=== PATIENT | female | born 1985 | race Caucasian/White ===

== ENCOUNTER 2016-09-29 12:05 | Emergency (ER) | payer BC, OTHER ==
[~2016-09-29] VITALS: Ht 154.9 cm; Wt 52.2 kg
[~2016-09-29 12:05] MED LIST: ALPH1CAP PO; ASCA500 PO; CHOL2000 PO; LEVO75TA PO; LORA-741 PO; MISCCAP80 PO; MULT-506 PO; PRMT10 PO
[2016-09-29 12:09] VITALS: TEMP 37.7; Ht 154.9 cm; Wt 52.2 kg
[2016-09-29] MEDS ORDERED: ONDANSETRON INJ 2 MG/ML 2 ML VIAL IV STA (12:16)
[2016-09-29] MEDS ORDERED: SODIUM CHLORIDE 0.9% 1000ML 1,000 ML IV STA (12:16)
[2016-09-29] MEDS ORDERED: KETOROLAC TROMETHAMINE 30 MG/ML VIAL IV STA (12:17)
[2016-09-29] MEDS ORDERED: POTA10TA30 PO (12:33)
[2016-09-29] MEDS ORDERED: CYM30 PO (12:34)
[2016-09-29 12:45] LABS: BASO ABS # 0.07 K/uL (0-0.2); COMPLETE YES; EOS % 1.2 %; HEMATOCRIT 39.3 % (37-47); IG% 0.3 %; LYMPH ABS # 0.52 K/uL (1.2-3.4); MEAN CELL VOLUME 84.2 fL (80-100); MEAN CORPUSCULAR HEMOGLOBIN 29.1 pg (25-34); MEAN CORPUSCULAR HGB CONC 34.6 g/dl (32-36); MEAN PLATELET VOLUME 11.1 fL (7.4-10.4); MONO % 15.6 %; NEUT % 65.9 %; PLATELET COUNT 139 K/uL (130-400); RED BLOOD COUNT 4.67 M/uL (4.2-5.4); WHITE BLOOD COUNT 3.47 K/uL (4.8-10.8)
[2016-09-29 13:01] LABS: ALT/SGPT 52 U/L (12-78); BLOOD UREA NITROGEN 11 mg/dl (7-18); BUN/CREATININE RATIO 13.3 (10-20); CALCIUM 8.7 mg/dl (8.5-10.1); CARBON DIOXIDE 27 mmol/L (21-32); CHLORIDE 108 mmol/L (98-107); CREATININE 0.81 mg/dl (0.60-1.20); GLUCOSE 80 mg/dl (70-99); POTASSIUM 3.8 mmol/L (3.5-5.1); SODIUM 143 mmol/L (136-145)
[2016-09-29 13:04] LABS: ALKALINE PHOSPHATASE 73 U/L (45-117); AST/SGOT 37 U/L (15-37)
--- NOTE | 2016-09-29 13:09 | EMERGENCY ROOM VISIT NOTE ---
History Report prepared by Sia: Radha Del Castillo Under the Supervision of: Dr. Paulino De Leon D.O. First contact with patient: 12:12 Chief Complaint: ILLNESS Stated Complaint: FEVER,RAPID HEARTBEAT, SOB, VOMITING, CONGESTION History of Present Illness The patient is a 31 year old female who presents to the Emergency Room with complaints of a persistent illness that began Sunday. She currently rates her discomfort as a 4/10 in severity. The patient states that she has a history of POTS and Dysautonomia and states that she is often more susceptible to becoming dehydrated. She states that Sunday she developed a productive cough, bringing up yellow sputum, sore throat, and generalized fatigue. The patient states that her cough is no longer productive and states that it is now a barky cough. She states that yesterday she developed a fever of 100.6 degrees Fahrenheit, but states that it went down to 99 degrees Fahrenheit with Tylenol. The patient states that she developed nausea, vomiting, diarrhea and abdominal pain this morning and states that she was instructed to come to the emergency department by her telegraphic typewriter operator for further work up and fluids due to her Dysautonomia and POTS. She states that her chronic shortness of breath and chest pain has increased with her illness. 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 She denies any history of an appendectomy or cholecystectomy. Pt denies headache, change in vision, vaginal discharge or bleeding, pain with urination, and melena. Source of History: patient Onset: Sunday Position: other (global) Symptom Intensity: 4/10 Quality: other (illness) Timing: other (persistent) Associated Symptoms: + SOB, + abdominal pain, + chest pain, + cough, + diarrhea, + fevers, + nausea, + sorethroat, + vomiting Review of Systems See HPI for pertinent positives & negatives. A total of 10 systems reviewed and were otherwise negative. Past Medical & Surgical Medical Problems: (1) Anxiety (2) Anxiety (3) Autonomic dysfunction (4) Bigeminal pulse (5) Bigeminy (6) Bronchitis (7) Calculus Of Kidney (8) Calculus Of Kidney (9) Chest pain (10) Chest pain (11) Chest pain syndrome (12) Chest pain syndrome (13) Chest wall pain (14) Depression (15) Depression (16) Depression (17) Dysautonomia (18) Dyspnea (19) Esophageal Reflux (20) Esophageal Reflux (21) Gastroparesis (22) Gastroparesis (23) Hypertension Nos (24) Hypokalemia (25) Hypothyroidism Nos (26) Hypothyroidism Nos (27) Palpitations (28) Palpitations (29) Palpitations (30) Palpitations (31) Pleurisy (32) Pneumonia (33) POTS (postural orthostatic tachycardia syndrome) (34) Shortness of breath (35) Syncope (36) Tachycardia (37) Tachycardia Nos (38) URI (upper respiratory infection) Family History FHx: cancer FHx: heart disease Gallbladder disease Hypertension Social History Smoking Status: Never Smoker Alcohol Use: occasionally Housing Status: lives with family Occupation Status: employed Current/Historical Medications Scheduled Ascorbic Acid (Vitamin C), 500 MG PO DAILY Cholecalciferol (Vitamin D3), 1 CAP PO DAILY Duloxetine HCl (Duloxetine HCl), 30 MG PO DAILY Levothyroxine Sodium (Synthroid), 75 MCG PO DAILY Lorazepam (Ativan), 0.5 MG PO QAM Lorazepam (Ativan), 0.25 MG PO QPM Midodrine (Midodrine HCl), 10 MG PO TID Multivitamin (Multivitamin), 1 TAB PO DAILY Potassium Chloride (Potassium Chloride Cr), 1 TAB PO DAILY Probiotic Product (Probiotic), 1 CAP PO DAILY Scheduled PRN Ondansetron Hcl (Zofran), 4 MG PO TID PRN for Nausea Allergies Coded Allergies: Tramadol (Verified Allergy, Severe, SYNCOPE AND FACIAL SWELLING, 09/29/16) Doxycycline (Verified Allergy, Unknown, SEVERE HEADACHES, 09/29/16) Latex1 -Allergic Contact Dermititis (Verified Allergy, Unknown, LOCALIZED HIVES, 09/29/16) Prednisone (Verified Adverse Reaction, Unknown, VOMITING, 09/29/16) Physical Exam Vital Signs Date Time Temp Pulse Resp B/P Pulse Ox O2 Delivery O2 Flow Rate FiO2 09/29/16 16:22 87 16 98/62 98 09/29/16 15:34 89 18 109/69 97 Room Air 09/29/16 13:30 97 16 96/51 98 Room Air 09/29/16 12:09 37.7 119 20 109/69 99 Room Air Physical Exam GENERAL: Ambulating in room without difficulty, alert, well appearing, well nourished, no distress, non-toxic EYE EXAM: normal conjunctiva. OROPHARYNX: no exudate, no erythema, lips, buccal mucosa, and tongue normal and mucous membranes are dry. Productive cough. NECK: supple, no nuchal rigidity, no adenopathy, non-tender LUNGS: Clear to auscultation. Normal chest wall mechanics HEART: Tachycardic rate. no murmurs, S1 normal and S2 normal ABDOMEN: abdomen soft, non-tender, normo-active bowel sounds, no masses, no rebound or guarding. BACK: Back is symmetrical on inspection and there is no deformity, no midline tenderness, no CVA tenderness. SKIN: no rashes and no bruising UPPER EXTREMITIES: upper extremities are grossly normal. LOWER EXTREMITIES: No pitting edema. Calves are equal bilaterally. NEURO EXAM: Normal sensorium, cranial nerves II-XII grossly intact, normal speech, no gross weakness of arms, no gross weakness of legs. Medical Decision & Procedures ER Provider Diagnostic Interpretation: Xray results per the radiologist and my interpretation. Other results have been interpreted by the radiologist and reviewed by me. PA CHEST WITH ABDOMINAL SERIES CLINICAL HISTORY: Generalized abdominal pain. Diarrhea. Vomiting. FINDINGS: A PA chest radiograph is compared to study dated 08/13/2016. The cardiomediastinal silhouette is unremarkable. Nipple shadows are incidentally noted. The lungs and pleural spaces are clear. No pneumothorax is seen. The bony thorax is grossly intact. Supine and erect abdominal radiographs are correlated with abdominal CT dated 08/25/2014. There is a nonobstructed abdominal bowel gas pattern. No intraperitoneal free air is seen. There is moderate colonic fecal retention. No abnormal abdominal calcifications are identified. The lumbosacral spine and bony pelvis appear intact. IMPRESSION: 1. No active disease in the chest. 2. Nonobstructed abdominal bowel gas pattern noting moderate colonic fecal retention. Electronically signed by: Ivan Rolle M.D. 09/29/2016 1:09 PM Dictated Date/Time: 09/29/2016 1:07 PM Laboratory Results 09/29/16 12:30 Red Blood Count 4.67, Mean Corpuscular Volume 84.2, Mean Corpuscular Hemoglobin 29.1, Mean Corpuscular Hemoglobin Concent 34.6, Mean Platelet Volume 11.1, Neutrophils (%) (Auto) 65.9, Lymphocytes (%) (Auto) 15.0, Monocytes (%) (Auto) 15.6, Eosinophils (%) (Auto) 1.2, Basophils (%) (Auto) 2.0, Neutrophils # (Auto ) 2.29, Lymphocytes # (Auto) 0.52, Monocytes # (Auto) 0.54, Eosinophils # (Auto ) 0.04, Basophils # (Auto) 0.07 09/29/16 12:30 Test 09/29/16 12:30 White Blood Count 3.47 K/uL (4.8-10.8) Red Blood Count 4.67 M/uL (4.2-5.4) Hemoglobin 13.6 g/dL (12.0-16.0) Hematocrit 39.3 % (37-47) Mean Corpuscular Volume 84.2 fL (80-100) Mean Corpuscular Hemoglobin 29.1 pg (25-34) Mean Corpuscular Hemoglobin Concent 34.6 g/dl (32-36) Platelet Count 139 K/uL (130-400) Mean Platelet Volume 11.1 fL (7.4-10.4) Neutrophils (%) (Auto) 65.9 % Lymphocytes (%) (Auto) 15.0 % Monocytes (%) (Auto) 15.6 % Eosinophils (%) (Auto) 1.2 % Basophils (%) (Auto) 2.0 % Neutrophils # (Auto) 2.29 K/uL (1.4-6.5) Lymphocytes # (Auto) 0.52 K/uL (1.2-3.4) Monocytes # (Auto) 0.54 K/uL (0.11-0.59) Eosinophils # (Auto) 0.04 K/uL (0-0.5) Basophils # (Auto) 0.07 K/uL (0-0.2) RDW Standard Deviation 38.4 fL (36.4-46.3) RDW Coefficient of Variation 12.7 % (11.5-14.5) Immature Granulocyte % (Auto) 0.3 % Immature Granulocyte # (Auto) 0.01 K/uL (0.00-0.02) Urine Test NEG (NEG) Anion Gap 8.0 mmol/L (3-11) Est Creatinine Clear Calc Drug Dose 74.5 ml/min Estimated GFR () 110.6 Estimated GFR (Non- 95.4 BUN/Creatinine Ratio 13.3 (10-20) Calcium Level 8.7 mg/dl (8.5-10.1) Total Bilirubin 0.3 mg/dl (0.2-1) Direct Bilirubin < 0.1 mg/dl (0-0.2) Aspartate Amino Transf (AST/SGOT) 37 U/L (15-37) Alanine Aminotransferase (ALT/SGPT) 52 U/L (12-78) Alkaline Phosphatase 73 U/L (45-117) Total Protein 7.7 gm/dl (6.4-8.2) Albumin 4.2 gm/dl (3.4-5.0) Lipase 171 U/L (73-393) Influenza Type A Antigen Neg for Influ A (NEG) Influenza Type B Antigen Neg for Influ B (NEG) Laboratory results per my review. Medications Administered Medications (Trade) Dose Ordered Sig/Mayela Route Start Time Stop Time Status Last Admin Dose Admin Sodium Chloride (Nss 1000ml) 1,000 ml @ 999 mls/hr Q1H1M STAT IV 09/29/16 12:16 09/29/16 13:16 DC 09/29/16 12:31 999 MLS/HR Ondansetron HCl (Zofran Inj) 4 mg NOW STAT IV 09/29/16 12:16 09/29/16 12:17 DC 09/29/16 12:31 4 MG Ketorolac Tromethamine (Toradol Inj) 30 mg NOW STAT IV 09/29/16 12:17 09/29/16 12:18 DC 09/29/16 12:31 30 MG ECG Indication: chest pain, SOB/dyspnea Rate (beats per minute): 111 Rhythm: sinus tachycardia Findings: no ectopy, other (right axis) Comparison ECG Date: 08/15/16 Change: no significant change ED Course ED COURSE: Vital signs were reviewed and showed tachycardic The patients medical record was reviewed The above diagnostic studies were performed and reviewed. ED treatments and interventions as stated above. 1214: The patient was evaluated in room A10. A complete history and physical examination was performed. 1216: Ordered Zofran Inj 4 mg IV, Sodium Chloride 1000 ml @ 999 mls/hr IV, Toradol Inj 30 mg IV. 1537: Upon reevaluation, the patient is resting comfortably.I discussed my findings with the patient and she understands and agrees with the treatment plan. Based on the patients age, coexisting illnesses, exam and lab findings the decision to treat as an outpatient was made. The patient remained stable while under my care. The patient appeared well at the time of discharge. Medical Decision Differential diagnoses includes but is not limited to pneumonia, bronchitis, COPD/Asthma exacerbation, pneumothorax, pulmonary embolism, congestive heart failure, acute coronary syndrome Patient is a 31-year-old female who presents the ER for cough, runny nose, sore throat along with 3 episodes of vomiting and diarrhea today. She has a history of pots syndrome/autonomic dysfunction and is referred in by her telegraphic typewriter operator anytime she might think patient might be dehydrated as she is more susceptible. On exam patient does not appear to be dehydrated. She is slightly tachycardic. IV was established and she was given a bolus normal saline per her request over 2 hours. She was also given Zofran and Toradol. Her abdominal exam was completely benign. Labs show no significant leukocytosis or anemia. BMP along with LFTs, bilirubin and lipase is unremarkable. Influenza A and B are negative. UA along with urine shows was negative. Obstruction series is unremarkable. Patient was given a bolus normal saline and felt better. She is updated at bedside and she is discharged follow-up with her PCP. Her EKG did show sinus tach with no ischemia. Heart rate trended down following the bolus of normal saline. Discussed with Pt concerning signs and symptoms to watch out for. Pt was instructed to follow up with their PCP and discussed with the patient their option to return to the ED at anytime for persistent or worsening symptoms. The appropriate anticipatory guidance and out-patient management, including indications for return to the emergency department, were explained at length to the patient and understood. Impression Primary Impression: Nausea vomiting and diarrhea Additional Impression: Tachycardia Scribe Attestation The scribe's documentation has been prepared under my direction and personally reviewed by me in its entirety. I confirm that the note above accurately reflects all work, treatment, procedures, and medical decision making performed by me. Departure Information Dispostion Home / Self-Care Prescriptions Ondansetron Hcl (ZOFRAN) 4 Mg Tab 4 MG PO TID Y for Nausea, #30 TAB Prov: Paulino De Leon, DO 09/29/16 Referrals Pro,Anup Dennis M.D. (PCP) Forms HOME CARE DOCUMENTATION FORM, IMPORTANT VISIT INFORMATION, WORK / SCHOOL INSTRUCTIONS Patient Instructions A Signature Page, ED Diet Vomiting Diarrhea, ED Vomiting Diarrhea Nonspecific Ad , My [facility] Additional Instructions Please follow up with your primary care doctor with in the next 24 hours. Any worsening of your symptoms, please return to the ED immediately. This includes persistent tachycardia, feeling lightheaded or dizzy, passing out, persistent nausea vomiting diarrhea, bloody stool, or any other concerning signs or symptoms from your standpoint. Please take Zofran as needed for nausea/vomiting. Please excuse from work as patient was seen in the ER on 09/29/16.
[2016-09-29] MEDS ORDERED: ONDA4TAB46 PO (16:08)
[2016-09-29 16:22] VITALS: BP 98/62; PULSE 87; O2SAT 98
== END 2016-09-29 16:22 | disposition home or self-care (01) ==
LOC: C.EDB 12:07 → C.EDA 16:22
DX: R11.2 Nausea with vomiting, unspecified (principal); R19.7 Diarrhea, unspecified; R00.0 Tachycardia, unspecified; I49.8 Other specified cardiac arrhythmias; G90.1 Familial dysautonomia [Riley-Day]; F41.9 Anxiety disorder, unspecified; R00.8 Other abnormalities of heart beat; Z87.442 Personal history of urinary calculi; F32.9 Major depressive disorder, single episode, unspecified; K21.9 Gastro-esophageal reflux disease without esophagitis; K31.84 Gastroparesis; I10 Essential (primary) hypertension; E87.6 Hypokalemia; E03.9 Hypothyroidism, unspecified; R09.1 Pleurisy; Z80.9 Family history of malignant neoplasm, unspecified; Z82.49 Family history of ischemic heart disease and other diseases of the circulatory system; Z83.79 Family history of other diseases of the digestive system; Z79.899 Other long term (current) drug therapy

== ENCOUNTER → 2016-10-03 | Outpatient (CLI) | payer BC, OTHER ==
[~2016-10-03] MED LIST changes: -ALPH1CAP PO; +CYM30 PO; +ONDA4TAB46 PO; +POTA10TA30 PO
--- NOTE | 2016-10-03 12:36 | DIAGNOSTIC IMAGING REPORT ---
TWO VIEW CHEST CLINICAL HISTORY: Cough. Fever. FINDINGS: PA and lateral chest radiographs are compared to study dated 09/29/2016. The cardiomediastinal silhouette is unremarkable. The lungs and pleural spaces are clear. Nipple shadows are noted. There is no pneumothorax. The bony thorax appears intact. IMPRESSION: No active disease in the chest. Electronically signed by: Ivan Rolle M.D. 10/03/2016 12:35 PM Dictated Date/Time: 10/03/2016 12:34 PM
== END | disposition home or self-care (01) ==
LOC: C.RAD1850 11:41
PROVIDERS: ATTEND Family Medicine
DX: R50.9 Fever, unspecified (principal); R05 Cough

== ENCOUNTER → 2016-11-30 | Outpatient (CLI) | payer OTHER | END | disposition home or self-care (01) | LOC: C.LAB1850 16:56 | PROVIDERS: ATTEND Internal Medicine Geriatric Medicine | DX: J02.9 Acute pharyngitis, unspecified (principal) ==

== ENCOUNTER → 2017-03-13 | Outpatient (CLI) | payer OTHER ==
[2017-03-13 16:00] LABS: BLOOD UREA NITROGEN 11 mg/dl (7-18); BUN/CREATININE RATIO 14.4 (10-20); CALCIUM 8.8 mg/dl (8.5-10.1); CARBON DIOXIDE 30 mmol/L (21-32); CHLORIDE 110 mmol/L (98-107); CREATININE 0.74 mg/dl (0.60-1.20); GLUCOSE 80 mg/dl (70-99); POTASSIUM 3.6 mmol/L (3.5-5.1); SODIUM 145 mmol/L (136-145)
[2017-03-13 16:44] LABS: LYME DISEASE AB IGG NEG (NEG); LYME DISEASE AB IGM NEG (NEG)
== END | disposition home or self-care (01) ==
LOC: C.LAB1850 14:54
PROVIDERS: ATTEND Internal Medicine
DX: M25.50 Pain in unspecified joint (principal); G90.9 Disorder of the autonomic nervous system, unspecified

== ENCOUNTER → 2017-04-16 | Outpatient (CLI) | payer OTHER ==
[~2017-04-16] MED LIST changes: -ONDA4TAB46 PO
[2017-04-16 14:07] LABS: BLOOD UREA NITROGEN 11 mg/dl (7-18); BUN/CREATININE RATIO 14.2 (10-20); CALCIUM 9.1 mg/dl (8.5-10.1); CARBON DIOXIDE 27 mmol/L (21-32); CHLORIDE 107 mmol/L (98-107); CREATININE 0.74 mg/dl (0.60-1.20); GLUCOSE 87 mg/dl (70-99); POTASSIUM 4.1 mmol/L (3.5-5.1); SODIUM 141 mmol/L (136-145)
== END | disposition home or self-care (01) ==
LOC: C.LABBC 11:45
PROVIDERS: ATTEND Internal Medicine
DX: G90.9 Disorder of the autonomic nervous system, unspecified (principal)

== ENCOUNTER → 2017-04-30 | Outpatient (CLI) | payer OTHER | END | disposition home or self-care (01) | LOC: C.PAPS 08:14 | PROVIDERS: ATTEND Obstetrics & Gynecology | DX: Z12.4 Encounter for screening for malignant neoplasm of cervix (principal) ==

== ENCOUNTER → 2017-06-25 | Outpatient (CLI) | payer OTHER ==
[2017-06-25 18:39] LABS: HEMATOCRIT 38.4 % (37-47); MEAN CELL VOLUME 84.2 fL (80-100); MEAN CORPUSCULAR HEMOGLOBIN 28.5 pg (25-34); MEAN CORPUSCULAR HGB CONC 33.9 g/dl (32-36); MEAN PLATELET VOLUME 11.3 fL (7.4-10.4); PLATELET COUNT 156 K/uL (130-400); RED BLOOD COUNT 4.56 M/uL (4.2-5.4); WHITE BLOOD COUNT 4.88 K/uL (4.8-10.8)
[2017-06-25 19:00] LABS: ALT/SGPT 21 U/L (12-78); BLOOD UREA NITROGEN 12 mg/dl (7-18); BUN/CREATININE RATIO 15.2 (10-20); CARBON DIOXIDE 24 mmol/L (21-32); CHLORIDE 108 mmol/L (98-107); CREATININE 0.79 mg/dl (0.60-1.20); GLUCOSE 96 mg/dl (70-99); POTASSIUM 3.7 mmol/L (3.5-5.1); SODIUM 142 mmol/L (136-145)
[2017-06-25 19:10] LABS: ALB/GLOB RATIO 1.1 (0.9-2); ALKALINE PHOSPHATASE 61 U/L (45-117); AST/SGOT 18 U/L (15-37)
== END | disposition home or self-care (01) ==
LOC: C.LAB 18:07
PROVIDERS: ATTEND Internal Medicine
DX: G90.9 Disorder of the autonomic nervous system, unspecified (principal); E03.9 Hypothyroidism, unspecified; G62.0 Drug-induced polyneuropathy; E55.9 Vitamin D deficiency, unspecified; J02.9 Acute pharyngitis, unspecified

== ENCOUNTER → 2017-08-15 | Outpatient (CLI) | payer OTHER | END | disposition home or self-care (01) | LOC: C.LABBC 11:35 | PROVIDERS: ATTEND Internal Medicine | DX: E03.9 Hypothyroidism, unspecified (principal) ==

== ENCOUNTER → 2017-10-27 | Outpatient (CLI) | payer OTHER | END | disposition home or self-care (01) | LOC: C.LAB 10:37 | PROVIDERS: ATTEND Internal Medicine | DX: E03.9 Hypothyroidism, unspecified (principal) ==

== ENCOUNTER → 2018-05-08 | Outpatient (CLI) | payer OTHER | END | disposition home or self-care (01) | LOC: C.PAPS 16:09 | PROVIDERS: ATTEND Obstetrics & Gynecology | DX: Z12.4 Encounter for screening for malignant neoplasm of cervix (principal); G62.0 Drug-induced polyneuropathy ==

== ENCOUNTER → 2018-05-13 | Outpatient (CLI) | payer OTHER ==
--- NOTE | 2018-05-13 12:01 | DIAGNOSTIC IMAGING REPORT ---
(ELIJAH/BLAD)RETROPERITON COMP HISTORY: 33 years-old Female R35.0 Urinary frequencyTo be completed now, before [id number] acute urinary frequency COMPARISON: Abdominal ultrasound 03/25/2015, CT 08/25/2014 TECHNIQUE: Multiple real-time sonogram images of the kidneys and bladder were obtained assessing grayscale appearance and color flow FINDINGS: The right kidney measures 10.9 x 4.6 x 6.7 cm. There are 2 nonobstructing calculi of the inferior pole right kidney measuring 3 and 4 mm respectively. There is mild right-sided pelvocaliectasis. No suspicious right-sided renal mass lesions. The left kidney measures 11.3 x 4.8 x 5.8 cm demonstrates no renal calculi, hydronephrosis or suspicious mass lesions. Bilateral ureteral jets are noted. Bladder is within normal limits. 194 mL post void residual. IMPRESSION: 1. Mild right-sided pelvocaliectasis, possibly reflecting a mild obstructive hydronephrosis or reflux dilation. Correlate with urinalysis and patient symptomatology. 2. Nonobstructing right nephrolithiasis. 3. Post void urinary bladder residual of 194 mL. 4. Unremarkable sonographic appearance of the left kidney. The above report was generated using voice recognition software. It may contain grammatical, syntax or spelling errors. Electronically signed by: Lloyd Reyes M.D. 05/13/2018 11:59 AM Dictated Date/Time: 05/13/2018 11:55 AM
== END | disposition home or self-care (01) ==
LOC: C.ULTR 10:39
PROVIDERS: ATTEND Nurse Practitioner Family
DX: R35.0 Frequency of micturition (principal); N20.0 Calculus of kidney